=== PATIENT | male | born 1960 | race African-American/Black ===

== ENCOUNTER 2016-10-21 18:18 | Emergency (ER) | payer MEDICAID ==
[~2016-10-21] VITALS: Ht 180.3 cm; Wt 95.0 kg
[2016-10-21] MEDS ORDERED: SODIUM CHLORIDE 0.9% 1,000 ML IV ONE (18:30)
[2016-10-21] MEDS ORDERED: ONDANSETRON HCL 4MG/2ML VIAL IV STA (18:30)
[2016-10-21] MEDS ORDERED: LEVETIRACETAM 1,000 MG in SODIUM CHLORIDE 0.9% 100 ML IV ONE (18:30)
[2016-10-21] MEDS ORDERED: MORPHINE SULFATE 4 MG/ML CPJ (NOT FOR IM USE) IV STA (18:30)
[2016-10-21 19:51] LABS: BASOPHILS % 0.4 % (0.0-2.0); EOSINOPHILS % 0.4 % (0.0-5.0); HEMATOCRIT. 37.8 % (42.0-52.0); HEMOGLOBIN. 12.8 g/dL (14.0-18.0); LYMPHOCYTES % 14.7 % (20.0-50.0); MEAN CORPUSCULAR HEMOGLOBIN 31.2 pg (28.0-32.0); MEAN CORPUSCULAR HGB CONC 33.8 g/dL (31.0-37.0); MEAN CORPUSCULAR VOLUME 92.3 fL (80.0-94.0); MEAN PLATELET VOLUME 7.1 fl (7.4-10.4); MONOCYTES % 9.4 % (2.0-8.0); NEUTROPHILS % 75.1 % (40.0-76.0); PLATELET 328 x1000/uL (130-400); RED CELL DISTRIBUTION WIDTH 15.8 % (11.6-14.6); WHITE BLOOD COUNT 8.1 x1000/uL (4.5-11.0)
[2016-10-21 20:00] LABS: PROTHROMBIN TIME 10.3 sec
[2016-10-21 20:07] LABS: ALANINE AMINOTRANSFERASE 36 IU/L (13-61); ALBUMIN 3.6 g/dL (3.4-5.0); ANION GAP 19; CALCIUM 8.3 mg/dL (8.5-10.1); CARBON DIOXIDE 22 mEq/L (21-32); CHLORIDE 99 mEq/L (98-107); CREATINE KINASE 159 IU/L (39-308); ETHANOL BLOOD 203 mg/dL; INDEX HEMOLYSI 1 (1-3); INDEX ICTERIC 1 (1-4); INDEX LIPEMIC 1 (1-3); NT PRO B-TYPE NATRIURETIC PEP 68 pg/mL (5-125); PHENYTOIN 0.8 ug/mL (10-20); TROPONIN I < 0.02 ng/mL (0.00-0.04); UREA NITROGEN BLOOD 11 mg/dL (7-21); eGFR 45 mL/min (>60)
[2016-10-21 20:17] LABS: CARBAMAZEPINE < 0.5 ug/mL (4-12); VALPROIC ACID 3.6 ug/mL (50-100)
[2016-10-21 21:28] LABS: PHENOBARBITAL < 2.1 ug/mL (15.0-40.0)
[2016-10-22 01:30] VITALS: BP 109/69
[2016-10-22] MEDS ORDERED: EPHEDRINE SULFATE 50MG/ML VIAL ONE (14:53)
[2016-10-22] MEDS ORDERED: VASOPRESSIN 20 UNIT/ML 1ML ONE (14:53)
== END 2016-10-22 02:52 | disposition home or self-care (01) ==
LOC: ER 18:18
DX: G40.909 Epilepsy, unspecified, not intractable, without status epilepticus (principal); S00.93XA Contusion of unspecified part of head, initial encounter; N28.9 Disorder of kidney and ureter, unspecified; R51 Headache; F10.10 Alcohol abuse, uncomplicated; I10 Essential (primary) hypertension; Y93.9 Activity, unspecified; X58.XXXA Exposure to other specified factors, initial encounter; Y92.410 Unspecified street and highway as the place of occurrence of the external cause; Z91.19 Patient's noncompliance with other medical treatment and regimen
CPT/HCPCS: 36415; 70450; 71010; 80053; 80156; 80165; 80184; 80185; 82550; 83880; 84443; 84484; 85025; 85610; 93005; 96365; 96375; 99285; G0482; J0171; J1953; J2270; J2405; J3490; J7030; J7050